=== PATIENT | female | born 1955 | race Caucasian/White ===

== ENCOUNTER 2018-03-18 16:36 | Emergency (ER) | payer BC ==
[~2018-03-18] VITALS: Ht 182.9 cm; Wt 72.6 kg
[2018-03-18] MEDS ORDERED: [UNRECOGNIZED DRUG - OTHER] (16:43)
[2018-03-18] MEDS ORDERED: ALEGRA (16:43)
== END 2018-03-18 20:26 | disposition home or self-care (01) ==
LOC: ER 16:36
DX: K52.89 Other specified noninfective gastroenteritis and colitis (principal); R55 Syncope and collapse